=== PATIENT | female | born 1955 | race Caucasian/White ===

== ENCOUNTER → 2016-07-03 | Outpatient (CLI) | payer OTHER ==
[~2016-07-03] MED LIST: DICL50TA3 PO; LEVO125T72 PO; LISI5TAB3 PO
[2016-07-03 18:16] LABS: ALT/SGPT 45 U/L (12-78); AST/SGOT 25 U/L (15-37); BLOOD UREA NITROGEN 16 mg/dl (7-18); BUN/CREATININE RATIO 14.9 (10-20); CALCIUM 9.4 mg/dl (8.5-10.1); CARBON DIOXIDE 28 mmol/L (21-32); CHLORIDE 105 mmol/L (98-107); GLUCOSE 87 mg/dl (70-99); POTASSIUM 3.9 mmol/L (3.5-5.1); SODIUM 141 mmol/L (136-145)
[2016-07-03 18:27] LABS: ALB/GLOB RATIO 1.1 (0.9-2); ALKALINE PHOSPHATASE 74 U/L (45-117)
== END | disposition home or self-care (01) ==
LOC: C.LABBFT 15:31
PROVIDERS: ATTEND Internal Medicine
DX: I10 Essential (primary) hypertension (principal); E03.9 Hypothyroidism, unspecified

== ENCOUNTER → 2016-07-09 | Outpatient (CLI) | payer OTHER ==
--- NOTE | 2016-07-09 11:23 | DIAGNOSTIC IMAGING REPORT ---
MANDIBLE MIN 4 VIEWS ROUTINE CLINICAL HISTORY: R68.84 Jaw [id number] pain COMPARISON STUDY: None FINDINGS: Normal study. Cortical margins are intact. IMPRESSION: No acute process. Electronically signed by: Kevin Horton M.D. 07/09/2016 11:22 AM Dictated Date/Time: 07/09/2016 11:20 AM
== END | disposition home or self-care (01) ==
LOC: C.RAD1850 10:50
PROVIDERS: ATTEND Internal Medicine
DX: R68.84 Jaw pain (principal)

== ENCOUNTER → 2017-01-09 | Outpatient (CLI) | payer OTHER ==
[2017-01-09 12:25] LABS: HEMATOCRIT 41.6 % (37-47); MEAN CELL VOLUME 93.9 fL (80-100); MEAN CORPUSCULAR HEMOGLOBIN 31.8 pg (25-34); MEAN CORPUSCULAR HGB CONC 33.9 g/dl (32-36); MEAN PLATELET VOLUME 9.6 fL (7.4-10.4); PLATELET COUNT 193 K/uL (130-400); RED BLOOD COUNT 4.43 M/uL (4.2-5.4); WHITE BLOOD COUNT 7.63 K/uL (4.8-10.8)
[2017-01-09 12:44] LABS: ALT/SGPT 32 U/L (12-78); BLOOD UREA NITROGEN 16 mg/dl (7-18); BUN/CREATININE RATIO 15.7 (10-20); CALCIUM 9.6 mg/dl (8.5-10.1); CARBON DIOXIDE 25 mmol/L (21-32); CHLORIDE 106 mmol/L (98-107); CHOLESTEROL 200 mg/dl (0-200); GLUCOSE 93 mg/dl (70-99); POTASSIUM 4.1 mmol/L (3.5-5.1); SODIUM 140 mmol/L (136-145)
[2017-01-09 12:55] LABS: ALB/GLOB RATIO 0.9 (0.9-2); ALKALINE PHOSPHATASE 75 U/L (45-117); AST/SGOT 23 U/L (15-37); CHOLESTEROL/HDL RATIO 4.2; HDL CHOLESTEROL 48 mg/dl; LDL CHOLESTEROL CALCULATED 113 mg/dl; THYROID STIMULATING HORMONE 0.464 uIu/ml (0.300-4.500); TRIGLYCERIDES 197 mg/dl (0-150); VERY LOW DENSITY LIPOPROT CALC 39 mg/dl
== END | disposition home or self-care (01) ==
LOC: C.LABBFT 10:51
PROVIDERS: ATTEND Internal Medicine
DX: E03.9 Hypothyroidism, unspecified (principal); I10 Essential (primary) hypertension

== ENCOUNTER → 2017-07-16 | Outpatient (CLI) | payer OTHER ==
[2017-07-16 16:35] LABS: BASO % 0.5 %; BASO ABS # 0.04 K/uL (0-0.2); EOS ABS # 0.42 K/uL (0-0.5); HEMATOCRIT 41.9 % (37-47); HEMOGLOBIN 14.1 g/dL (12.0-16.0); IG# 0.02 K/uL (0.00-0.02); LYMPH % 24.7 %; LYMPH ABS # 2.09 K/uL (1.2-3.4); MEAN CELL VOLUME 93.5 fL (80-100); MEAN CORPUSCULAR HEMOGLOBIN 31.5 pg (25-34); MEAN CORPUSCULAR HGB CONC 33.7 g/dl (32-36); MEAN PLATELET VOLUME 9.9 fL (7.4-10.4); MONO % 8.8 %; MONO ABS # 0.74 K/uL (0.11-0.59); NEUT % 60.8 %; NEUT ABS # 5.14 K/uL (1.4-6.5); PLATELET COUNT 199 K/uL (130-400); RED CELL DISTRIBUTION WIDTH CV 13.5 % (11.5-14.5); RED CELL DISTRIBUTION WIDTH SD 46.2 fL (36.4-46.3); WHITE BLOOD COUNT 8.45 K/uL (4.8-10.8)
[2017-07-16 16:46] LABS: ALBUMIN 4.2 gm/dl (3.4-5.0); ALT/SGPT 25 U/L (12-78); BLOOD UREA NITROGEN 17 mg/dl (7-18); CALCIUM 9.4 mg/dl (8.5-10.1); CARBON DIOXIDE 27 mmol/L (21-32); CREATININE 0.91 mg/dl (0.60-1.20); GLUCOSE 85 mg/dl (70-99); POTASSIUM 3.7 mmol/L (3.5-5.1); SODIUM 138 mmol/L (136-145)
[2017-07-16 16:57] LABS: ALKALINE PHOSPHATASE 78 U/L (45-117); AST/SGOT 18 U/L (15-37); TOTAL PROTEIN 7.8 gm/dl (6.4-8.2)
== END | disposition home or self-care (01) ==
LOC: C.LABBFT 12:02
PROVIDERS: ATTEND Internal Medicine
DX: E03.9 Hypothyroidism, unspecified (principal); I10 Essential (primary) hypertension; D89.0 Polyclonal hypergammaglobulinemia

== ENCOUNTER → 2017-08-06 | Outpatient (CLI) | payer OTHER ==
--- NOTE | 2017-08-06 13:14 | DIAGNOSTIC IMAGING REPORT ---
HAND MIN 3 VIEWS ROUTINE CLINICAL HISTORY: M79.643 Pain of [id number] pain COMPARISON: None. DISCUSSION: Mild/moderate generalized degenerative change of the interphalangeal joints throughout. More significant degenerative change first carpometacarpal joint as well as second carpometacarpal joint. No evidence for fracture or dislocation. Mild dorsal soft tissue edema. IMPRESSION: Degenerative change considered most significant at the first and second carpometacarpal joints and to a moderate degree throughout the interphalangeal joints. Mild soft tissue edema. The above report was generated using voice recognition software. It may contain grammatical, syntax or spelling errors. Electronically signed by: Kevin Horton M.D. 08/06/2017 1:13 PM Dictated Date/Time: 08/06/2017 1:12 PM
== END | disposition home or self-care (01) ==
LOC: C.RAD1850 13:01
PROVIDERS: ATTEND Internal Medicine
DX: M79.641 Pain in right hand (principal)

== ENCOUNTER 2021-03-27 17:05 | Inpatient (IN) ==
[2021-03-27 18:08] LABS: Basophils # (auto) 0.02 K/uL (0-0.2); Basophils % (auto) 0.3 %; Eosinophils # (auto) 0.01 K/uL (0-0.5); Eosinophils % (auto) 0.2 %; Hematocrit (blood only) 41.6 % (37-47); Hemoglobin 13.7 g/dL (12.0-16.0); Immature Granulocytes # (auto) 0.01 K/uL (0.00-0.02); Immature Granulocytes % (auto) 0.2 %; Lymphocytes # (auto) 1.31 K/uL (1.2-3.4); Lymphocytes % (auto) 19.8 %; Mean Corpuscular Hemoglobin 31.9 pg (25-34); Mean Corpuscular Hgb Conc 32.9 g/dL (32-36); Mean Corpuscular Volume 96.7 fL (80-100); Mean Platelet Volume 10.2 fL (7.4-10.4); Monocytes # (auto) 0.81 K/uL (0.11-0.59); Monocytes % (auto) 12.2 %; Neutrophils # (auto) 4.47 K/uL (1.4-6.5); Neutrophils % (auto) 67.3 %; Platelet Count 133 K/uL (130-400); RDW Coefficient of Variation 13.7 % (11.5-14.5); RDW Standard Deviation 47.9 fL (36.4-46.3); White Blood Count 6.63 K/uL (4.8-10.8)
[2021-03-27 18:21] LABS: Partial Thromboplastin Time 27.2 Seconds (21.0-31.0); Prothrombin Time 10.3 Seconds (9.0-12.0)
[2021-03-27 19:03] LABS: Alanine Aminotransferase 64 (12-78); Albumin Globulin Ratio 0.8 (0.9-2); Albumin Level 3.6 gm/dl (3.4-5.0); Alkaline Phosphatase 55 U/L (45-117); Bilirubin,Total 0.7 mg/dl (0.2-1); Blood Urea Nitrogen 17 mg/dl (7-18); Calcium 8.7 mg/dl (8.5-10.1); Carbon Dioxide 24 mmol/L (21-32); Chloride 104 mmol/L (98-107); Est GFR (African American) 54.7 ml/min; Est GFR (Non-African American) 47.2 ml/min; Globulin 4.4 gm/dl (2.5-4.0); Glucose 104 mg/dl (70-99); Sodium 137 mmol/L (136-145); Thyroid Stimulating Hormone 0.459 uIu/ml (0.300-4.500); Troponin I < 0.015 ng/ml (0-0.045)
[2021-03-27 21:08] LABS: Potassium 3.4 mmol/L (3.5-5.1)
[2021-03-27 21:14] LABS: Magnesium 2.3 mg/dl (1.8-2.4)
[2021-03-27] MEDS ORDERED: ONDANSETRON INJ 2 MG/ML 2 ML VIAL IV STA (21:49)
--- NOTE | 2021-03-27 21:53 | Emergency Department Note ---
History of Present Illness General Chief complaint: Lethargic Stated complaint: LETHARGIC, CHILLS, CONFUSION--LYMES DISEASE Time Seen by Provider: 03/27/21 21:40 History of Present Illness This is a 65-year-old female that presents to the emergency department via private vehicle with complaints of "lethargic, chills, confusionLyme disease". The patient notes that about 10 to 12 weeks ago she had nausea, feeling queasy, difficulty eating, lightheadedness, "foggy" at times and dizziness. She notes that she was treated with doxycycline for Lyme disease and improved. She then notes that this past she felt like she was bit on her right ear but did not see any insect or bug. Thursday then she notes that she awoke and while walking to the chicken coop became dizzy and then fell. She notes return of symptoms that she had several weeks ago to include nauseated, queasiness, inability to eat secondary to nausea, lightheadedness, "foggy" at times and dizziness. She also notes intermittent cough. No chest pain. No shortness of breath. No fevers. She has been trying to stay hydrated. Patient denies any dizziness at this time. She denies any vision change. No speech trouble or weakness. Home Medications Medication Instructions Recorded Confirmed Type vitamin K2 40 mcg tablet 40 mcg PO QAM 10/15/18 03/27/21 History albuterol sulfate 90 mcg/actuation 2 puff INHALATION QID PRN #18 gm 01/18/20 03/27/21 Rx aerosol inhaler (Ventolin HFA) ibuprofen 600 mg tablet 600 mg PO Q6H PRN #90 tab 04/30/20 03/27/21 Rx acetaminophen 500 mg tablet 1,000 mg PO Q6 PRN 11/22/20 03/27/21 History (Tylenol Extra Strength) amlodipine 10 mg tablet 10 mg PO QAM #90 tab 01/23/21 03/27/21 Rx levothyroxine 150 mcg tablet 150 mcg PO QAM #90 tab 01/23/21 03/27/21 Rx nystatin-triamcinolone 100,000 1 applic TOP TID PRN #60 g 01/23/21 03/27/21 Rx unit/g-0.1 % topical cream ascorbic acid (vitamin C) 100 mg 0 mg PO DAILY 03/27/21 03/27/21 History tablet (Vitamin C) cholecalciferol (vitamin D3) 25 25 mcg PO DAILY 03/27/21 03/27/21 History mcg (1,000 unit) tablet (Vitamin D3) fluticasone 100 mcg-salmeterol 50 1 inh INH BID PRN 03/27/21 03/27/21 History mcg/dose blistr powdr for inhalation (Advair Diskus) magnesium 250 mg tablet 0 mg PO DAILY 03/27/21 03/27/21 History omega-3 fatty acids 0 mg PO DAILY 03/27/21 03/27/21 History potassium 99 mg tablet 0 mg PO DAILY 03/27/21 03/27/21 History vitamin E 400 unit tablet 0 mg PO DAILY 03/27/21 03/27/21 History Allergies Allergy/AdvReac Type Severity Reaction Status Date / Time amoxicillin Allergy Intermediate rash Verified 03/27/21 22:33 albuterol [From Combivent] AdvReac Intermediate Headache Verified 03/27/21 22:33 ipratropium [From Combivent] AdvReac Intermediate Headache Verified 03/27/21 22:33 hydrochlorothiazide AdvReac Mild SICK IN Verified 03/27/21 22:33 STOMACH Past Med/Surg History Medical History (Updated 03/28/21 @ 07:41 by Derek Kelly PA-C) Acute kidney injury (05/12/13) no problems currently. Asthma allergy induced--inhaler prn Cervical cancer 2005--sx Degenerative disc disease Diverticulosis Fatty liver pt unaware GERD (gastroesophageal reflux disease) no medications Hiatal hernia HTN (hypertension) Hyperlipidemia Hypothyroidism Leukemia 2011--bone marrow confirmation--just monitor for now Lupus Migraine Rheumatoid arthritis Urethral stricture due to and not concurrent with procedure Surgical History H/O tubal ligation History of breast biopsy x2--benign History of cataract surgery B/L History of colonoscopy History of dilatation and curettage History of tooth extraction all top teeth removed/most of bottom S/P laparoscopic hysterectomy Family History Mother Diabetes Breast cancer Bone cancer Uncle Colorectal cancer Diabetes Prostate cancer Sister Uterine cancer Father Myocardial infarction Prostate cancer Other Heart disease No family history of adverse response to anesthesia Denies family history of Ovarian cancer Social History Smoking Status: Never smoker Tobacco Type: Cigarettes Age Started Using Tobacco: 12; Age Quit Using Tobacco: 52; packs per day: 1; Second Hand Exposure: Yes (children smoke); Hx Alcohol Use: No Hx Substance Use: No Preferred Language: [place] Communication Ability: Effective Visual Impairment: No Limitations Hearing Ability: Normal 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 Beliefs That Will Affect Care: None marital status: Current Living Situation: Alone current occupational status: disabled Feels Safe at Home: Yes Childhood Exposure to Second-Hand Smoke: Yes caffeine: Yes during the past year weight has: remained stable Dental Care, Regularly: No Physical Activity Frequency: Does not Exercise Seatbelt Use: never Sunscreen Use: No Assistive Devices: Cane, Denture - Upper and Glasses Review of Systems A total of 10 systems reviewed and were otherwise negative Physical Exam Vital Signs Vital Signs - 24 hr 03/27/21 17:13 03/27/21 22:07 03/27/21 22:08 Temperature 36.8 C 37 C Temperature Source Temporal Artery Scan Oral Pulse Rate 99 H 86 Pulse Rate [Apical] Pulse Rate from SpO2 Sensor Pulse Rhythm Regular Pulse Strength Normal Respiratory Rate 20 18 Respiratory Effort / Characteristics Non-Labored Accessory Muscle Use Respiratory Depth Normal Respiratory Pattern Regular Blood Pressure 125/76 131/66 Blood Pressure [Right Arm] Blood Pressure Mean 92 87 Blood Pressure Mean [Right Arm] Blood Pressure Position Sitting Pulse Oximetry 94 93 Oxygen Delivery Method Room Air Room Air Oxygen Flow Rate Sepsis Recent Fever Within 48 Hours No Sepsis New/Unexplained Change in Mental Status No Sepsis Action Taken by Nursing No Action Required 03/28/21 00:30 03/28/21 01:20 03/28/21 01:21 Temperature 37.1 C Temperature Source Oral Pulse Rate 82 85 Pulse Rate [Apical] 82 Pulse Rate from SpO2 Sensor 82 85 Pulse Rhythm Pulse Strength Respiratory Rate 20 21 19 Respiratory Effort / Characteristics Non-Labored Spontaneous Respiratory Depth Normal Respiratory Pattern Regular Blood Pressure 135/83 Blood Pressure [Right Arm] 114/69 Blood Pressure Mean 100 Blood Pressure Mean [Right Arm] 84 Blood Pressure Position Pulse Oximetry 93 91 93 Oxygen Delivery Method Room Air Oxygen Flow Rate Sepsis Recent Fever Within 48 Hours Sepsis New/Unexplained Change in Mental Status Sepsis Action Taken by Nursing 03/28/21 01:30 03/28/21 01:43 03/28/21 02:00 Temperature Temperature Source Pulse Rate 83 86 Pulse Rate [Apical] 83 79 Pulse Rate from SpO2 Sensor 85 87 Pulse Rhythm Pulse Strength Respiratory Rate 20 23 19 Respiratory Effort / Characteristics Non-Labored Spontaneous Respiratory Depth Normal Respiratory Pattern Regular Blood Pressure 133/67 108/68 Blood Pressure [Right Arm] 133/67 126/69 Blood Pressure Mean 89 81 Blood Pressure Mean [Right Arm] 89 88 Blood Pressure Position Pulse Oximetry 93 96 92 Oxygen Delivery Method Room Air Room Air Oxygen Flow Rate Sepsis Recent Fever Within 48 Hours Sepsis New/Unexplained Change in Mental Status Sepsis Action Taken by Nursing 03/28/21 02:30 03/28/21 03:00 03/28/21 03:30 Temperature Temperature Source Pulse Rate 82 81 81 Pulse Rate [Apical] Pulse Rate from SpO2 Sensor 82 82 81 Pulse Rhythm Pulse Strength Respiratory Rate 20 18 33 H Respiratory Effort / Characteristics Respiratory Depth Respiratory Pattern Blood Pressure 104/71 Blood Pressure [Right Arm] Blood Pressure Mean 82 Blood Pressure Mean [Right Arm] Blood Pressure Position Pulse Oximetry 92 92 86 L Oxygen Delivery Method Room Air Oxygen Flow Rate Sepsis Recent Fever Within 48 Hours Sepsis New/Unexplained Change in Mental Status Sepsis Action Taken by Nursing 03/28/21 03:35 03/28/21 03:59 03/28/21 04:00 Temperature Temperature Source Pulse Rate 80 83 Pulse Rate [Apical] Pulse Rate from SpO2 Sensor 83 Pulse Rhythm Pulse Strength Respiratory Rate 20 20 29 H Respiratory Effort / Characteristics Respiratory Depth Respiratory Pattern Blood Pressure Blood Pressure [Right Arm] Blood Pressure Mean Blood Pressure Mean [Right Arm] Blood Pressure Position Pulse Oximetry 92 83 L 83 L Oxygen Delivery Method Room Air Room Air Nasal Cannula Oxygen Flow Rate 2 Sepsis Recent Fever Within 48 Hours Sepsis New/Unexplained Change in Mental Status Sepsis Action Taken by Nursing 03/28/21 04:01 03/28/21 04:30 03/28/21 05:00 Temperature Temperature Source Pulse Rate 86 86 77 Pulse Rate [Apical] Pulse Rate from SpO2 Sensor 84 78 Pulse Rhythm Pulse Strength Respiratory Rate 18 23 24 Respiratory Effort / Characteristics Respiratory Depth Respiratory Pattern Blood Pressure Blood Pressure [Right Arm] Blood Pressure Mean Blood Pressure Mean [Right Arm] Blood Pressure Position Pulse Oximetry 96 98 97 Oxygen Delivery Method Oxygen Flow Rate 2 Sepsis Recent Fever Within 48 Hours Sepsis New/Unexplained Change in Mental Status Sepsis Action Taken by Nursing VITAL SIGNS - Vital signs and nursing notes were reviewed. Stable and afebrile. GENERAL - 65-year-old female appearing her stated age who is in no acute distress. Communicates well with provider and answers questions appropriately. SKIN -the integument on the superior aspect of the right external ear does elici t a small scabbed area with a small amount of surrounding erythema. HEAD - NC/AT. EYES - PERRL with EOMI bilaterally. Sclera anicteric. EARS - No deformities of external structures noted on gross examination bilaterally. No pain elicited with palpation of the tragus bilaterally. External auditory canals without discharge or otorrhea. Tympanic membranes pearly tate without retraction or bulging. No fluid or purulent material visualized behind the TM. Handle of malleus, umbo, cone of light, pars tensa/flaccid all easily visualized. There is a small scab-like structure to the superior aspect of the right external ear with some small amount of surrounding erythema. NOSE - Midline and without cyanosis. No epistaxis or purulent drainage noted. Septum midline without deviation or septal hematoma noted. MOUTH/OROPHARYNX - Without perioral cyanosis. Buccal mucosa pink and moist and without leukoplakia. Tongue midline with equal elevation of palate bilaterally. No tonsillar hypertrophy, erythema, or exudates noted. Good dentition noted. NECK - Neck with FROM. Supple to palpation. Good lymphadenopathy noted. No nuchal rigidity. LUNGS - Chest wall symmetric without accessory muscle use, intercostals retractions, or central cyanosis. Normal vesicular breath sounds CTA B/L. No wheezes, rales, or rhonchi appreciated. CARDIAC - RRR with S1/S2. No murmur, rubs, or gallops appreciated. ABDOMEN - Abdominal contour normal without pulsations or visible masses. BS normoactive all four quadrants. No tenderness, palpable masses, hepatosplenomegaly, or ascites noted. EXTREMITIES - No clubbing or peripheral cyanosis. +5/5 strength noted in UE/LE bilaterally. NEUROLOGIC - Cranial nerves II through XII grossly intact. PSYCH - A&Ox3 and cooperates fully with examiner. Pt is very pleasant and in teracts well with examiner. Course Administered Medications Albuterol (Albut/Ipratrop 3mg/0.5mg Neb 3 Ml Vial) 3 ml NEB QIDR JAZMYNE Stop: 04/27/21 06:59 Last Admin: 03/28/21 07:07 Dose: 3 ml Documented by: [id number] Fish Oil ([place]-3 (Purified Fish Oil) 1 Gm Cap) 3 gm PO QAM PENDING SALE TO [facility] Stop: 04/27/21 08:59 Last Admin: 03/28/21 08:02 Dose: 3 gm Documented by: [id number] Guaifenesin (Guaifenesin 600 Mg Tabcr) 1,200 mg PO Q12 JAZMYNE Stop: 04/27/21 08:59 Last Admin: 03/28/21 08:00 Dose: 1,200 mg Documented by: [id number] Dexamethasone 6 mg/ Syringe 1.5 mls @ 1 mls/min IV DAILY PENDING SALE TO [facility] Stop: 04/27/21 08:59 Last Admin: 03/28/21 08:04 Dose: 1 mls/min Documented by: [id number] Doxycycline Hyclate 100 mg/ (Dextrose) 110 mls @ 50 mls/hr IV Q12 PENDING SALE TO [facility]; Protocol Stop: 04/07/21 07:59 Last Admin: 03/28/21 08:04 Dose: 50 mls/hr Documented by: [id number] Levothyroxine Sodium (Levothyroxine Sodium 150 Mcg Tablet) [facility] Stop: 04/27/21 07:29 Last Admin: 03/28/21 07:58 Dose: 150 mcg Documented by: [id number] Magnesium Oxide (Magnesium Oxide 400 Mg Tab) 400 mg PO DAILY PENDING SALE TO [facility] Stop: 04/27/21 08:59 Last Admin: 03/28/21 08:03 Dose: 400 mg Documented by: [id number] Vitamin D (Cholecalciferol 1,000 Units 25 Mcg Tab) 1,000 units PO QAM PENDING SALE TO [facility] Stop: 04/27/21 08:59 Last Admin: 03/28/21 08:03 Dose: 1,000 units Documented by: [id number] Zinc Sulfate (Zinc Sulfate 220 Mg Capsule) 220 mg PO QAM PENDING SALE TO [facility] Stop: 04/27/21 08:59 Last Admin: 03/28/21 08:22 Dose: Not Given Documented by: [id number] Discontinued Medications Casirivimab 1,200 mg/ Sodium (Chloride) 110 mls @ 310 mls/hr IV NOW ONE; Protocol Stop: 03/28/21 00:49 Last Infusion: 03/28/21 01:49 Dose: 0 mls/hr Documented by: [id number] Admin: 03/28/21 01:22 Dose: 310 mls/hr Documented by: [id number] Remdesivir 200 mg/ Sodium (Chloride) 250 mls @ 125 mls/hr IV ONE STA; Protocol Stop: 03/28/21 07:31 Last Admin: 03/28/21 06:27 Dose: 125 mls/hr Documented by: [id number] Ioversol (Optiray 320 125ml) 120 ml IV ONCE ONE Stop: 03/28/21 05:44 Last Admin: 03/28/21 05:43 Dose: 120 ml Documented by: [id number] Miscellaneous (Stat Iv) 1 ea N/A NOW STA Stop: 03/28/21 00:14 Last Admin: 03/28/21 01:23 Dose: 1 ea Documented by: [id number] Ondansetron HCl (Ondansetron Inj 2 Mg/Ml 2 Ml Vial) 4 mg IV NOW STA Stop: 03/27/21 21:50 Last Admin: 03/27/21 22:00 Dose: 4 mg Documented by: [id number] Potassium Chloride (Potassium Chloride Crtab 20 Meq Tabcr) 40 meq PO NOW STA Stop: 03/28/21 05:28 Last Admin: 03/28/21 05:56 Dose: 40 meq Documented by: [id number] Sodium Chloride (Sodium Chloride 0.9% 10ml Flush) 30 ml IV ONCE ONE Stop: 03/28/21 00:44 Last Admin: 03/28/21 01:43 Dose: 30 ml Documented by: [id number] Medical Decision Making Laboratory Data Result diagrams: 03/27/21 17:55 03/27/21 20:37 Lab Results 03/27/21 03/27/21 03/27/21 Range/Units 17:55 17:55 17:55 WBC 6.63 (4.8-10.8) K/uL RBC 4.30 (4.2-5.4) M/uL Hgb 13.7 (12.0-16.0) g/dL Hct 41.6 (37-47) % MCV 96.7 (80-100) fL MCH 31.9 (25-34) pg MCHC 32.9 (32-36) g/dL RDW Std Deviation 47.9 H (36.4-46.3) fL RDW Coeff of [place] 13.7 (11.5-14.5) % Plt Count 133 (130-400) K/uL MPV 10.2 (7.4-10.4) fL Immature Gran % (Auto) 0.2 % Neut % (Auto) 67.3 % Lymph % (Auto) 19.8 % [place] % (Auto) 12.2 % Eos % (Auto) 0.2 % Baso % (Auto) 0.3 % Neut # (Auto) 4.47 (1.4-6.5) K/uL Lymph # (Auto) 1.31 (1.2-3.4) K/uL [place] # (Auto) 0.81 H (0.11-0.59) K/uL Eos # (Auto) 0.01 (0-0.5) K/uL Baso # (Auto) 0.02 (0-0.2) K/uL Immature Gran # (Auto) 0.01 (0.00-0.02) K/uL PT 10.3 (9.0-12.0) Seconds INR 1.0 (0.9-1.1) APTT 27.2 (21.0-31.0) Seconds PTT Ratio 1.0 Sodium 137 (136-145) mmol/L Potassium (3.5-5.1) mmol/L Chloride 104 (98-107) mmol/L Carbon Dioxide 24 (21-32) mmol/L Anion Gap 9.0 (3-11) BUN 17 (7-18) mg/dl Creatinine 1.19 (0.6-1.2) mg/dl Est Cr Clr Drug Dosing Not Reportable Est GFR ( Amer) 54.7 ml/min Est GFR (Non-Af Amer) 47.2 ml/min BUN/Creatinine Ratio 14.0 (10-20) Glucose 104 H (70-99) mg/dl Calcium 8.7 (8.5-10.1) mg/dl Magnesium (1.8-2.4) mg/dl Total Bilirubin 0.7 (0.2-1) mg/dl AST (15-37) U/L ALT 64 (12-78) Alkaline Phosphatase 55 (45-117) U/L Troponin I < 0.015 (0-0.045) ng/ml Total Protein 8.0 (6.4-8.2) gm/dl Albumin 3.6 (3.4-5.0) gm/dl Globulin 4.4 H (2.5-4.0) gm/dl Albumin/Globulin Ratio 0.8 L (0.9-2) TSH 0.459 (0.300-4.500) uIu/ml Urine Color Urine Appearance (Clear) Urine pH (4.5-7.5) Ur Specific [place] (1.000-1.030) Urine Protein (Negative) Urine Glucose (UA) (Negative) Urine Ketones (Negative) Urine Blood (Negative) Urine Nitrite (Negative) Urine Bilirubin (Negative) Urine Urobilinogen (Negative) Ur Leukocyte Esterase (Negative) Urine RBC (0-4) /hpf Urine WBC (0-5) /hpf Ur Epithelial Cells (0-5) /lpf Triple Phos Crystals (None Prsent) Urine Bacteria (Negative) Hyaline Casts (0-5) /lpf Urine Mucus (None Prsent) Lyme Disease IgG Ab (Negative) Lyme Disease IgM Ab (Negative) SARS-CoV-2 (PCR) (Negative) Influenza Type A (PCR) (Neg) Influenza Type B (PCR) (Neg) RSV (RT-PCR) (Neg) 03/27/21 03/27/21 03/27/21 Range/Units 20:37 22:13 23:00 WBC (4.8-10.8) K/uL RBC (4.2-5.4) M/uL Hgb (12.0-16.0) g/dL Hct (37-47) % MCV (80-100) fL MCH (25-34) pg MCHC (32-36) g/dL RDW Std Deviation (36.4-46.3) fL RDW Coeff of [place]ilo (11.5-14.5) % Plt Count (130-400) K/uL MPV (7.4-10.4) fL Immature Gran % (Auto) % Neut % (Auto) % Lymph % (Auto) % [place] % (Auto) % Eos % (Auto) % Baso % (Auto) % Neut # (Auto) (1.4-6.5) K/uL Lymph # (Auto) (1.2-3.4) K/uL [place] # (Auto) (0.11-0.59) K/uL Eos # (Auto) (0-0.5) K/uL Baso # (Auto) (0-0.2) K/uL Immature Gran # (Auto) (0.00-0.02) K/uL PT (9.0-12.0) Seconds INR (0.9-1.1) APTT (21.0-31.0) Seconds PTT Ratio Sodium (136-145) mmol/L Potassium 3.4 L (3.5-5.1) mmol/L Chloride (98-107) mmol/L Carbon Dioxide (21-32) mmol/L Anion Gap (3-11) BUN (7-18) mg/dl Creatinine (0.6-1.2) mg/dl Est Cr Clr Drug Dosing Est GFR ( Amer) ml/min Est GFR (Non-Af Amer) ml/min BUN/Creatinine Ratio (10-20) Glucose (70-99) mg/dl Calcium (8.5-10.1) mg/dl Magnesium 2.3 (1.8-2.4) mg/dl Total Bilirubin (0.2-1) mg/dl AST 55 H (15-37) U/L ALT (12-78) Alkaline Phosphatase (45-117) U/L Troponin I (0-0.045) ng/ml Total Protein (6.4-8.2) gm/dl Albumin (3.4-5.0) gm/dl Globulin (2.5-4.0) gm/dl Albumin/Globulin Ratio (0.9-2) TSH (0.300-4.500) uIu/ml Urine Color Dark Yellow Urine Appearance Clear (Clear) Urine pH 5.5 (4.5-7.5) Ur Specific [place] >= 1.030 (1.000-1.030) Urine Protein 2+ H (Negative) Urine Glucose (UA) Negative (Negative) Urine Ketones 1+ H (Negative) Urine Blood Negative (Negative) Urine Nitrite Negative (Negative) Urine Bilirubin 2+ H (Negative) Urine Urobilinogen Negative (Negative) Ur Leukocyte Esterase Negative (Negative) Urine RBC 0-4 (0-4) /hpf Urine WBC 0-5 (0-5) /hpf Ur Epithelial Cells 5-10 H (0-5) /lpf Triple Phos Crystals Present A (None Prsent) Urine Bacteria Negative (Negative) Hyaline Casts 0-5 (0-5) /lpf Urine Mucus Present A (None Prsent) Lyme Disease IgG Ab (Negative) Lyme Disease IgM Ab (Negative) SARS-CoV-2 (PCR) POSITIVE A* (Negative) Influenza Type A (PCR) Negative (Neg) Influenza Type B (PCR) Negative (Neg) RSV (RT-PCR) Negative (Neg) 03/27/21 Range/Units 23:13 WBC (4.8-10.8) K/uL RBC (4.2-5.4) M/uL Hgb (12.0-16.0) g/dL Hct (37-47) % MCV (80-100) fL MCH (25-34) pg MCHC (32-36) g/dL RDW Std Deviation (36.4-46.3) fL RDW Coeff of [place] (11.5-14.5) % Plt Count (130-400) K/uL MPV (7.4-10.4) fL Immature Gran % (Auto) % Neut % (Auto) % Lymph % (Auto) % [place] % (Auto) % Eos % (Auto) % Baso % (Auto) % Neut # (Auto) (1.4-6.5) K/uL Lymph # (Auto) (1.2-3.4) K/uL [place] # (Auto) (0.11-0.59) K/uL Eos # (Auto) (0-0.5) K/uL Baso # (Auto) (0-0.2) K/uL Immature Gran # (Auto) (0.00-0.02) K/uL PT (9.0-12.0) Seconds INR (0.9-1.1) APTT (21.0-31.0) Seconds PTT Ratio Sodium (136-145) mmol/L Potassium (3.5-5.1) mmol/L Chloride (98-107) mmol/L Carbon Dioxide (21-32) mmol/L Anion Gap (3-11) BUN (7-18) mg/dl Creatinine (0.6-1.2) mg/dl Est Cr Clr Drug Dosing Est GFR ( Amer) ml/min Est GFR (Non-Af Amer) ml/min BUN/Creatinine Ratio (10-20) Glucose (70-99) mg/dl Calcium (8.5-10.1) mg/dl Magnesium (1.8-2.4) mg/dl Total Bilirubin (0.2-1) mg/dl AST (15-37) U/L ALT (12-78) Alkaline Phosphatase (45-117) U/L Troponin I (0-0.045) ng/ml Total Protein (6.4-8.2) gm/dl Albumin (3.4-5.0) gm/dl Globulin (2.5-4.0) gm/dl Albumin/Globulin Ratio (0.9-2) TSH (0.300-4.500) uIu/ml Urine Color Urine Appearance (Clear) Urine pH (4.5-7.5) Ur Specific [place] (1.000-1.030) Urine Protein (Negative) Urine Glucose (UA) (Negative) Urine Ketones (Negative) Urine Blood (Negative) Urine Nitrite (Negative) Urine Bilirubin (Negative) Urine Urobilinogen (Negative) Ur Leukocyte Esterase (Negative) Urine RBC (0-4) /hpf Urine WBC (0-5) /hpf Ur Epithelial Cells (0-5) /lpf Triple Phos Crystals (None Prsent) Urine Bacteria (Negative) Hyaline Casts (0-5) /lpf Urine Mucus (None Prsent) Lyme Disease IgG Ab Positive A (Negative) Lyme Disease IgM Ab Positive A (Negative) SARS-CoV-2 (PCR) (Negative) Influenza Type A (PCR) (Neg) Influenza Type B (PCR) (Neg) RSV (RT-PCR) (Neg) Imaging Data My Impression: Chest x-ray reveals bilateral mild infiltrates consistent with acute viral pneumonia. Radiologist's Impression: Head CT 03/27/21 21:[address] DOSE: 614.27 mGy.cm HISTORY: dizziness TECHNIQUE: Multiaxial CT images of the head were performed without the use of intravenous contrast. Automated exposure control was utilized for this study. A dose lowering technique was utilized adhering to the principles of ALARA. Comparison: Head CT 07/27/2018. Findings: The paranasal sinuses and mastoid air cells are clear. The calvarium and skull base are intact. The ventricles and sulci are within normal limits. There is no mass, hematoma, midline shift, or acute infarct. Impression: No acute intracranial abnormality. ACT 112: Negative or not required by law. Electronically signed by: Warren Thacker M.D. 03/28/2021 7:23 AM MDM Narrative Patient was seen and evaluated as above in room A02. Review was performed of nursing notes and vital signs. I did review pertinent previous visits and patient history. After obtaining a thorough history and physical examination the above work up was performed. Patient presents to us today with several days of nausea, feeling queasy, difficulty eating because of her nausea, intermittent lightheadedness, feeling foggy at times and dizziness. She is nontoxic on examination. Vital signs stable. No focal neurologic deficit. No speech trouble or weakness. No chest pain or shortness of breath. Patient was seen during a period of high volume and acuity during the COVID-19 pandemic. Protocols were already performed and labs were already drawn prior to me evaluating the patient. No leukocytosis or concerning anemia. No emergent metabolic disturbance. Troponin negative. TSH normal. Urinalysis does not reveal infection. Lyme IgG and IgM were positive however she was recently on a course of 21 days of doxycycline a few months ago. Covid testing here is positive. Chest x-ray per my interpretation reveals what appears to be a mild multifocal pneumonia likely viral in origin from COVID-19. CT scan of the head was obtained noting her dizziness and was negative for acute process. EKG here reveals normal sinus rhythm at a rate of 97 bpm. QTc 419. QRS 76. The patient is able to tolerate p.o. We discussed options of care. The patient at this time appears stable to be discharged to follow-up in the outpatient setting. No hypoxia. Benefit versus risk of Covid monoclonal antibodies discussed noting that she meets criteria and at this time appears stable for discharge. No episodes of hypoxia thus far. She was provided the appropriate patient fact sheet. She was able to review this in its entirety. She would like to proceed with the monoclonal antibody. This was ordered. Patient was doing quite well. Patient then did desire to wait a few hours after the infusion to ensure there was no reaction. I did find this to be reasonable. I was then notified by the nurse that the patient's oxygen had dropped into the 80s with good waveform. This then happened again. Oxygen was started. Although the plan was for discharge home after the monoclonal antibodies, at this time with the patient having 2 episodes of hypoxia in the setting of COVID-19 it is felt that further evaluation and management in the inpatient setting is warranted. Case discussed with the hospitalist. Patient amenable to plan of care. Please refer to further documentation regarding her stay. GCS: 15 In the evaluation and treatment of this patient the following differential diagnoses were entertained: Acute intracranial abnormality, SD, PE, pericarditis, costochondritis, CVA, TIA, among others. Impression & Plan Pneumonia due to COVID-19 virus, Hypoxia, Lyme disease Discharge Plan Visit Data Chief Complaint: Lethargic Stated Complaint: LETHARGIC, CHILLS, CONFUSION--LYMES DISEASE ED Provider: Andrea Moore ED Midlevel Provider: Derek Kelly Discharge Problem: Pneumonia due to COVID-19 virus, Hypoxia, Lyme disease Patient Disposition: Admitted As Inpatient Condition: Good Discharge Instructions Interventions: ED Discharge Assessment Last Done: 03/28/21 06:43 Monoclonal Antibody Treatment Medical Decision Making Does the patient weigh at least 40kg?: Yes Is the patient within 10 days of symptom onset?: Yes The patient has the following criteria for treatment: Age >= 65, BMI > 25 and Chronic lung disease List of possible exclusion criteria: A. Being hospitalized for COVID B. Requiring Oxygen Therapy due to COVID C. Requiring an increase in baseline Oxygen flow rate due to COVID-19 in those on chronic oxygen therapy due to underlying non-COVID related comorbidity D. Known to have a hypersensitivity to any ingredient of Bamlanivimab or Casirivimab/imdevimab EUA: The patient meets EUA criteria for use. I have explained the EUA, risks and benefits of the infusion, and reviewed the information on the Fact Sheet for Patients, Parents and Caregivers with the patient. The patient was given a copy of the Fact Sheet for patients, Parents and Caregivers and education packet. They were informed that Bamlanivimab or Casirivimab/imdevimab is an unapproved drug that it is authorized for use under an Emergency Use Authorization. They were informed of alternative treatments. The patient reviewed the information and freely consented to the infusion.
[2021-03-27 22:59] LABS: Influenza A virus by PCR Negative (Neg); Influenza B virus by PCR Negative (Neg); RSV by PCR Negative (Neg)
[2021-03-27 23:02] LABS: SARS CoV2 RNA(COVID-19) InHosp POSITIVE (Negative)
[2021-03-27 23:06] LABS: Appearance Urine Clear (Clear); Bilirubin Urine 2+ (Negative); Blood Urine Negative (Negative); Glucose Urine UA Negative (Negative); Ketones Urine 1+ (Negative); Leukocyte Esterase Urine Negative (Negative); Nitrite Urine Negative (Negative); Protein Urine 2+ (Negative); Specific Gravity Urine >= 1.030 (1.000-1.030); Urobilinogen Urine Negative (Negative); pH Urine 5.5 (4.5-7.5)
[2021-03-27 23:09] LABS: Color Urine Dark Yellow
[2021-03-27 23:14] LABS: RBC Urine 0-4 /hpf (0-4)
[2021-03-27 23:15] LABS: Bacteria Urine Negative (Negative); Hyaline Casts Urine 0-5 /lpf (0-5); Mucus Urine Present (None Prsent); Triple Phosphate Crystal Urine Present (None Prsent); WBC Urine 0-5 /hpf (0-5)
[2021-03-28] MEDS ORDERED: methylPREDNISolone 125 MG/2 ML VIAL IV PRN (00:13)
[2021-03-28] MEDS ORDERED: EPINEPHrine INJ 1 MG/ML AMP IM PRN (00:13)
[2021-03-28] MEDS ORDERED: ONDANSETRON INJ 2 MG/ML 2 ML VIAL IV PRN ×2 (00:13→06:44)
[2021-03-28] MEDS ORDERED: STAT IV STA (00:13)
[2021-03-28] MEDS ORDERED: ACETAMINOPHEN 325 MG TAB PO PRN (00:13)
[2021-03-28] MEDS ORDERED: diphenhydrAMINE 50 MG/ML VIAL IV PRN (00:13)
[2021-03-28] MEDS ORDERED: CASIRIVIMAB/IMDEVIMAB 1,200 MG in 0.9 % SODIUM CHLORIDE 100 ML IV ONE (00:28)
[2021-03-28] MEDS ORDERED: SODIUM CHLORIDE 0.9% 10ML FLUSH IV ONE (00:43)
[2021-03-28] MEDS ORDERED: 0.2 MICRON FILTER SET 1 EA IV ONE (00:43)
[2021-03-28 00:54] LABS: Lyme Ab IgG w/WB Rflx Positive (Negative); Lyme Ab IgM w/WB Rflx Positive (Negative)
--- NOTE | 2021-03-28 01:28 | Emergency Department Note ---
ED Visit Note Patient was seen and evaluated at the bedside w/ Derek Kelly PA-C. Please see their note for history, physical, details, and disposition. Patient did present with weakness and fatigue and recent Lyme's illness. Diagnosed with Covid today. Received monoclonal antibodies. .
[2021-03-28] MEDS ORDERED: POTASSIUM CHLORIDE CRTAB 20 MEQ TABCR PO STA (05:27)
[2021-03-28] MEDS ORDERED: REMDESIVIR 200 MG in SODIUM CHLORIDE 0.9% 210 ML IV STA (05:32)
--- NOTE | 2021-03-28 05:32 | History & Physical Report ---
Date of Service March 28, 2021 Assessment & Plan (1) Pneumonia due to COVID-19 virus: Plan: Pneumonia due to COVID-19 virus/COPD exacerbation with hypoxia- Pulse ox decreased to 83% on room air CT angiography PE protocol ordered and pending Dexamethasone 6 mg IV every morning Remdesivir IV per protocol Duonebs every 4 hours while awake and every 2 hours when necessary. Azithromycin 500 mg IV daily Guaifenesin extended release 12 mg p.o. twice daily Vitamin D 1000 international units p.o. daily Zinc sulfate 220 mg p.o. daily Nasal cannula oxygen, titrate to keep pulse ox 94 to 95% Will place on Lovenox, if CT angiography is positive for PE will be on therapeu tic dosing, otherwise will be on Covid prophylaxis dosing (2) Hypoxia: Plan: See above (3) Lyme disease: Plan: Had an episode about 12 weeks ago, that appeared to respond to 21 days of doxycycline, with resolution of those symptoms. Patient tested positive for IgM and IgG antibodies with PCR testing. She does remember having a dark spot on her ear within the past few weeks (4) Hypokalemia: Plan: Potassium 3.4 upon edition. We will give Klor-Con 40 mEq p.o. x1 then recheck (5) Lupus: Plan: Noted on problems, however, no long-term therapy (6) HTN (hypertension): Plan: Hold amlodipine due to low normal blood pressure (7) Hypothyroidism: Plan: Continue levothyroxine 50 mcg daily (8) COPD (chronic obstructive pulmonary disease): Plan: See above History of Present Illness Chief Complaint: The patient presents to the emergency department with complaint of fatigue, chills, confusion, decreased appetite, lightheadedness about 12 weeks ago that was relieved by a 21-day course of doxycycline for Lyme disease. She noticed 1 week ago an episode of dizziness causing her to fall, and then had a return of some of the previous symptoms, but also became short of breath and had dyspnea on exertion. Primary Care Provider: NO PCP Allergies Allergy/AdvReac Type Severity Reaction Status Date / Time amoxicillin Allergy Intermediate rash Verified 03/27/21 22:33 albuterol [From Combivent] AdvReac Intermediate Headache Verified 03/27/21 22:33 ipratropium [From Combivent] AdvReac Intermediate Headache Verified 03/27/21 22:33 hydrochlorothiazide AdvReac Mild SICK IN Verified 03/27/21 22:33 STOMACH Home Medications Medication Instructions Recorded Confirmed Type vitamin K2 40 mcg tablet 40 mcg PO QAM 10/15/18 03/27/21 History albuterol sulfate 90 mcg/actuation 2 puff INHALATION QID PRN #18 gm 01/18/20 03/27/21 Rx aerosol inhaler (Ventolin HFA) ibuprofen 600 mg tablet 600 mg PO Q6H PRN #90 tab 04/30/20 03/27/21 Rx acetaminophen 500 mg tablet 1,000 mg PO Q6 PRN 11/22/20 03/27/21 History (Tylenol Extra Strength) amlodipine 10 mg tablet 10 mg PO QAM #90 tab 01/23/21 03/27/21 Rx levothyroxine 150 mcg tablet 150 mcg PO QAM #90 tab 01/23/21 03/27/21 Rx nystatin-triamcinolone 100,000 1 applic TOP TID PRN #60 g 01/23/21 03/27/21 Rx unit/g-0.1 % topical cream ascorbic acid (vitamin C) 100 mg 0 mg PO DAILY 03/27/21 03/27/21 History tablet (Vitamin C) cholecalciferol (vitamin D3) 25 25 mcg PO DAILY 03/27/21 03/27/21 History mcg (1,000 unit) tablet (Vitamin D3) fluticasone 100 mcg-salmeterol 50 1 inh INH BID PRN 03/27/21 03/27/21 History mcg/dose blistr powdr for inhalation (Advair Diskus) magnesium 250 mg tablet 0 mg PO DAILY 03/27/21 03/27/21 History omega-3 fatty acids 0 mg PO DAILY 03/27/21 03/27/21 History potassium 99 mg tablet 0 mg PO DAILY 03/27/21 03/27/21 History vitamin E 400 unit tablet 0 mg PO DAILY 03/27/21 03/27/21 History Past Med/Surg History Medical History (Updated 03/28/21 @ 05:51 by Olivier Pierce MD) Acute kidney injury (05/12/13) no problems currently. Asthma allergy induced--inhaler prn Cervical cancer 2005--sx Degenerative disc disease Diverticulosis Fatty liver pt unaware GERD (gastroesophageal reflux disease) no medications Hiatal hernia HTN (hypertension) Hyperlipidemia Hypothyroidism Leukemia 2011--bone marrow confirmation--just monitor for now Lupus Migraine Rheumatoid arthritis Urethral stricture due to and not concurrent with procedure Surgical History H/O tubal ligation History of breast biopsy x2--benign History of cataract surgery B/L History of colonoscopy History of dilatation and curettage History of tooth extraction all top teeth removed/most of bottom S/P laparoscopic hysterectomy Family History Mother Diabetes Breast cancer Bone cancer Uncle Colorectal cancer Diabetes Prostate cancer Sister Uterine cancer Father Myocardial infarction Prostate cancer Other Heart disease No family history of adverse response to anesthesia Denies family history of Ovarian cancer Social History Smoking Status: Never smoker Tobacco Type: Cigarettes Age Started Using Tobacco: 12; Age Quit Using Tobacco: 52; packs per day: 1; Second Hand Exposure: Yes (children smoke); Hx Alcohol Use: No Hx Substance Use: No Preferred Language: Sinhala Communication Ability: Effective Visual Impairment: No Limitations Hearing Ability: Normal Due Diligence Coordinator Required: No Beliefs That Will Affect Care: None marital status: Current Living Situation: Alone current occupational status: disabled Feels Safe at Home: Yes Childhood Exposure to Second-Hand Smoke: Yes caffeine: Yes during the past year weight has: remained stable Dental Care, Regularly: No Physical Activity Frequency: Does not Exercise Seatbelt Use: never Sunscreen Use: No Assistive Devices: Cane, Denture - Upper and Glasses Review of Systems Review of Systems: The patient denies chest pain, palpitations, lower extremity swelling, sore throat, diarrhea , constipation, abdominal pain, pelvic pain, blood in urine or stool, dysuria, urinary frequency or urgency, memory loss, loss of consciousness, rash, abnormal bruising or bleeding, focal weakness, numbness or tingling in arms or legs, generalized arthralgias or myalgias, back or neck pain, or night sweats. The review of systems is otherwise negative other than for that already noted above, and at least 10 systems have been reviewed. Physical Exam Physical Exam: The patient is awake, alert and oriented 3, well developed and well nourished, normocephalic and atraumatic, lying in bed and in no acute distress. HEENT--PERRL, EOMI, mucous membranes and oropharynx normal. Neck--supple. No JVD. No bruits. Thyroid normal, trachea midline, no adenopathy. Heart--normal S1 and S2. No murmurs, rubs or gallops. Lungs--coarse breath sounds bilaterally. No respiratory distress, no accessory muscle use. Abdomen--normal bowel sounds and soft. Nontender. Nondistended. Extremities--no cyanosis or clubbing. No edema. Dermatologic--normal skin turgor, normal color, no abnormal lymph nodes, no rash. Neurologic--cranial nerves II through XII grossly intact. Rheumatologic--normal range of motion. Psychiatric--normal affect. Results & Data Results & Data ([facility]) Vital Signs (Past 12 Hours) Vital Signs Temp Pulse Pulse Resp BP BP Pulse Ox 03/28/21 04:01 86 18 96 03/28/21 04:00 86 18 92 03/28/21 03:59 20 83 L 03/28/21 03:35 80 20 92 03/28/21 03:30 81 33 H 86 L 03/28/21 03:00 81 18 104/71 92 03/28/21 02:30 82 20 92 03/28/21 02:00 86 19 108/68 92 03/28/21 01:43 79 23 126/69 96 03/28/21 01:30 83 83 20 133/67 133/67 93 03/28/21 01:21 37.1 C 82 19 114/69 93 03/28/21 01:20 85 21 91 03/28/21 00:30 82 20 135/83 93 03/27/21 22:08 37 C 03/27/21 22:07 86 18 131/66 93 Laboratory Results Laboratory Results WBC 6.63 K/uL (4.8-10.8) 03/27/21 17:55 RBC 4.30 M/uL (4.2-5.4) 03/27/21 17:55 Hgb 13.7 g/dL (12.0-16.0) 03/27/21 17:55 Hct 41.6 % (37-47) 03/27/21 17:55 MCV 96.7 fL (80-100) 03/27/21 17:55 MCH 31.9 pg (25-34) 03/27/21 17:55 MCHC 32.9 g/dL (32-36) 03/27/21 17:55 RDW Std Deviation 47.9 fL (36.4-46.3) H 03/27/21 17:55 RDW Coeff of Nilo 13.7 % (11.5-14.5) 03/27/21 17:55 Plt Count 133 K/uL (130-400) 03/27/21 17:55 MPV 10.2 fL (7.4-10.4) 03/27/21 17:55 Immature Gran % (Auto) 0.2 % 03/27/21 17:55 Neut % (Auto) 67.3 % 03/27/21 17:55 Lymph % (Auto) 19.8 % 03/27/21 17:55 [place] % (Auto) 12.2 % 03/27/21 17:55 Eos % (Auto) 0.2 % 03/27/21 17:55 Baso % (Auto) 0.3 % 03/27/21 17:55 Neut # (Auto) 4.47 K/uL (1.4-6.5) 03/27/21 17:55 Lymph # (Auto) 1.31 K/uL (1.2-3.4) 03/27/21 17:55 [place] # (Auto) 0.81 K/uL (0.11-0.59) H 03/27/21 17:55 Eos # (Auto) 0.01 K/uL (0-0.5) 03/27/21 17:55 Baso # (Auto) 0.02 K/uL (0-0.2) 03/27/21 17:55 Immature Gran # (Auto) 0.01 K/uL (0.00-0.02) 03/27/21 17:55 PT 10.3 Seconds (9.0-12.0) 03/27/21 17:55 INR 1.0 (0.9-1.1) 03/27/21 17:55 APTT 27.2 Seconds (21.0-31.0) 03/27/21 17:55 PTT Ratio 1.0 03/27/21 17:55 Sodium 137 mmol/L (136-145) 12/08/21 17:55 Potassium 3.4 mmol/L (3.5-5.1) L 03/27/21 20:37 Chloride 104 mmol/L (98-107) 03/27/21 17:55 Carbon Dioxide 24 mmol/L (21-32) 03/27/21 17:55 Anion Gap 9.0 (3-11) 03/27/21 17:55 BUN 17 mg/dl (7-18) 03/27/21 17:55 Creatinine 1.19 mg/dl (0.6-1.2) 03/27/21 17:55 Est Cr Clr Drug Dosing Not Reportable 03/27/21 17:55 Est GFR ( Amer) 54.7 ml/min 03/27/21 17:55 Est GFR (Non-Af Amer) 47.2 ml/min 03/27/21 17:55 BUN/Creatinine Ratio 14.0 (10-20) 03/27/21 17:55 Glucose 104 mg/dl (70-99) H 03/27/21 17:55 Calcium 8.7 mg/dl (8.5-10.1) 03/27/21 17:55 Magnesium 2.3 mg/dl (1.8-2.4) 03/27/21 20:37 Total Bilirubin 0.7 mg/dl (0.2-1) 03/27/21 17:55 AST 55 U/L (15-37) H 03/27/21 20:37 ALT 64 (12-78) 03/27/21 17:55 Alkaline Phosphatase 55 U/L (45-117) 03/27/21 17:55 Troponin I < 0.015 ng/ml (0-0.045) 03/27/21 17:55 Total Protein 8.0 gm/dl (6.4-8.2) 03/27/21 17:55 Albumin 3.6 gm/dl (3.4-5.0) 03/27/21 17:55 Globulin 4.4 gm/dl (2.5-4.0) H 03/27/21 17:55 Albumin/Globulin Ratio 0.8 (0.9-2) L 03/27/21 17:55 TSH 0.459 uIu/ml (0.300-4.500) 03/27/21 17:55 Urine Color Dark Yellow 03/27/21 23:00 Urine Appearance Clear (Clear) 03/27/21 23:00 Urine pH 5.5 (4.5-7.5) 03/27/21 23:00 Ur Specific [place] >= 1.030 (1.000-1.030) 03/27/21 23:00 Urine Protein 2+ (Negative) H 03/27/21 23:00 Urine Glucose (UA) Negative (Negative) 03/27/21 23:00 Urine Ketones 1+ (Negative) H 03/27/21 23:00 Urine Blood Negative (Negative) 03/27/21 23:00 Urine Nitrite Negative (Negative) 03/27/21 23:00 Urine Bilirubin 2+ (Negative) H 03/27/21 23:00 Urine Urobilinogen Negative (Negative) 03/27/21 23:00 Ur Leukocyte Esterase Negative (Negative) 03/27/21 23:00 Urine RBC 0-4 /hpf (0-4) 03/27/21 23:00 Urine WBC 0-5 /hpf (0-5) 03/27/21 23:00 Ur Epithelial Cells 5-10 /lpf (0-5) H 03/27/21 23:00 Triple Phos Crystals Present (None Prsent) A 03/27/21 23:00 Urine Bacteria Negative (Negative) 03/27/21 23:00 Hyaline Casts 0-5 /lpf (0-5) 03/27/21 23:00 Urine Mucus Present (None Prsent) A 03/27/21 23:00 Lyme Disease IgG Ab Positive (Negative) A 03/27/21 23:13 Lyme Disease IgM Ab Positive (Negative) A 03/27/21 23:13 SARS-CoV-2 (PCR) POSITIVE (Negative) A* 03/27/21 22:13 Influenza Type A (PCR) Negative (Neg) 03/27/21 22:13 Influenza Type B (PCR) Negative (Neg) 03/27/21 22:13 RSV (RT-PCR) Negative (Neg) 03/27/21 22:13 Code Status & VTE Plan Code Status Full code VTE Prophylaxis Plan VTE Prophylaxis will be ordered: Yes PG Care Time/CCT Total # of Minutes Spent Total Time Spent with Patient: Total time spent is greater than 50% in coordination of care (as documented) at patient's floor/unit and/or counseling patient: Coding Level of Care Code 68725 Initial Inpt Care Lvl 3 Diagnoses Pneumonia due to COVID-19 virus U07.1; J12.82 Hypoxia R09.02 Hypokalemia E87.6 Lupus L93.0 HTN (hypertension) I10 Hypothyroidism E03.9 COPD (chronic obstructive pulmonary disease) J44.9 Lyme disease A69.20
[2021-03-28] MEDS ORDERED: OPTIRAY 320 125ml IV ONE (05:43)
[2021-03-28] MEDS ORDERED: SODIUM CHLORIDE 0.9% 10ML FLUSH IV SCH ×2 (06:44→07:00)
[2021-03-28] MEDS: ALBUT/IPRATROP 3MG/0.5MG NEB 3 ML VIAL NEB SCH ×4 (07:07→20:22)
--- NOTE | 2021-03-28 07:25 | CT Scan Report ---
HEAD CT NONCONTRAST CT DOSE: 614.27 mGy.cm HISTORY: dizziness TECHNIQUE: Multiaxial CT images of the head were performed without the use of intravenous contrast. A utomated exposure control was utilized for this study. A dose lowering technique was utilized adheri ng to the principles of ALARA. Comparison: Head CT 07/27/2018. Findings: The paranasal sinuses and mastoid air cells are clear. The calvarium and skull base are int act. The ventricles and sulci are within normal limits. There is no mass, hematoma, midline shift, or acute infarct. Impression: No acute intracranial abnormality. ACT 112: Negative or not required by law. Electronically signed by: Warren Thacker M.D. 03/28/2021 7:23 AM
[2021-03-28] MEDS ORDERED: DOXYCYCLINE HYCLATE 100 MG in DEXTROSE 5% 100 ML IV SCH ×2 (07:30→08:00)
[2021-03-28] MEDS: LEVOTHYROXINE SODIUM 150 MCG TABLET PO SCH (07:58)
[2021-03-28] MEDS: guaiFENesin 600 MG TABCR PO SCH ×2 (08:00→22:49)
[2021-03-28] MEDS: OMEGA-3 (PURIFIED FISH OIL) 1 GM CAP PO SCH (08:02)
[2021-03-28] MEDS: CHOLECALCIFEROL 1,000 UNITS 25 MCG TAB PO SCH (08:03)
[2021-03-28] MEDS: MAGNESIUM OXIDE 400 MG TAB PO SCH (08:03)
[2021-03-28] MEDS: dexAMETHasone 6 MG in SYRINGE 0 ML IV SCH (08:04)
[2021-03-28] MEDS: ZINC SULFATE 220 MG CAPSULE PO SCH (08:22)
[2021-03-28] MEDS ORDERED: NON-FORMULARY MEDICATION (Cholecalciferol (Vitamin D3) [Vitamin D3] 25 mcg (1,000 unit) Ta PO SCH (09:00)
--- NOTE | 2021-03-28 09:02 | CT Scan Report ---
CHEST CTA for PULMONARY ARTERIES CT DOSE: 951.71 mGy.cm HISTORY: Positive Covid. Cough. Shortness of breath. TECHNIQUE: Multiaxial CT images of the chest were performed following the intravenous administration of contrast to evaluate the pulmonary arteries. Maximal intensity projection images were also obtaine d. A dose lowering technique was utilized adhering to the principles of ALARA. COMPARISON STUDY: None. FINDINGS: The visualized liver and spleen are unremarkable. Mild nodular thickening of the adrenal gl ands remains unchanged. There is a moderate hiatus hernia, unchanged. No pleural or pericardial effus ions. The heart is top normal in size. Hypoplastic thyroid gland. Subcentimeter mediastinal and hilar lymph nodes do not meet CT criteria for pathologic involvement. Moderate calcified plaque within the coronary arteries. No evidence for an aortic dissection. Suboptimal opacification of the distal pulm onary arteries due to the timing of contrast. However, no definite filling defects within the pulmona ry arteries to suggest a pulmonary embolus. A few scattered peripheral groundglass opacities within t he lungs, right greater than left. This likely represents a mild viral pneumonia. IMPRESSION: 1. No evidence for pulmonary embolus. 2. A few scattered peripheral groundglass airspace opacities within the lungs most pronounced on the right. This favors a mild viral pneumonia. 3. Moderate hiatus hernia. ACT 112: Negative or not required by law. Electronically signed by: Warren Thacker M.D. 03/28/2021 9:01 AM
--- NOTE | 2021-03-28 09:06 | XRay Report ---
XR chest 1V portable HISTORY: cough COMPARISON: Chest 11/22/2020. FINDINGS: No pneumothorax. No pleural effusions. The heart is normal in size. There is a moderate hia tus hernia. Scattered peripheral airspace opacities within the mid to lower lung zones most pronounce d on the right are new from the prior study. This likely represents a viral pneumonia. There is mild emphysema. IMPRESSION: Mild multifocal pneumonia. ACT 112: Negative or not required by law. Electronically signed by: Warren Thacker M.D. 03/28/2021 9:04 AM
[2021-03-28] MEDS ORDERED: ENOXAPARIN 0.5 MG/KG SQ SCH (09:30)
[2021-03-28] MEDS: ENOXAPARIN INJ 60 MG/0.6 ML SYR SQ SCH ×2 (10:21→22:49)
[2021-03-28] MEDS: FAMOTIDINE 20 MG TAB PO SCH ×2 (10:22→22:49)
--- NOTE | 2021-03-28 15:59 | Hospitalist Progress Note ---
Date of Service March 28, 2021 Assessment & Plan (1) Pneumonia due to COVID-19 virus: Plan: 65-year-old white female with an underlying past medical history of COPD, SLE, HTN and hypothyroidism Initially hemodynamically stable and not hypoxic upon presentation into the ED. Received monoclonal antibody with anticipation for discharge from the emergency department While monoclonal antibody infusing, dropped her sats briefly to 83% Started on supplemental oxygen and subsequently hospitalized Initially given remdesivir, Decadron and empiric antibiotic therapy CTA showed no evidence of PE but did show groundglass opacities in the periphery consistent with viral pneumonia When seen by myself this morning, she has been taken off of oxygen and her pulse ox is in the mid 90s. She denies any shortness of breath At this point, will DC any additional doses of remdesivir as qualifications for this medication are that she would be requiring supplemental oxygen Add incentive spirometry Continue Decadron Monitor. If stable over the next 24 hours, consider discharge to home She did receive today's dose of remdesivir. If she ends up desaturating requiring supplemental oxygen, will resume this with tomorrow's dose. (2) Hypoxia: Plan: See above (3) Lyme disease: Plan: Diagnosed 12 weeks ago Completed a full course of doxycycline Her IgM and IgG are positive (suspect she has not truly converted IgM to IgG) No need for additional doxycycline at this time (4) Hypokalemia: Plan: Potassium 3.4 upon edition. Supplemented. Follow-up labs tomorrow (5) Lupus: Plan: Noted on problems, however, no long-term therapy (6) HTN (hypertension): Plan: BP 110 to 130s Amlodipine held as she did have a blood pressure of 104 systolic Can continue to hold for now (7) Hypothyroidism: Plan: Continue levothyroxine 50 mcg daily (8) COPD (chronic obstructive pulmonary disease): Plan: No evidence of acute exacerbation Patient denies shortness of breath, and is not bronchospastic or wheezing Continue Advair as prior to hospitalization (or pharmacy formulary substitution) Utilize nebulized treatments as needed Admission and Anticipated Discharge Date Admission Date: March 28, 2021 Subjective Patient seen on daily rounds today. Hospitalized early this morning with Covid and hypoxemia. Approximately 10 to 12 weeks ago, was feeling unwell. Had complaints of dizziness/lightheadedness, fevers, chills, and felt like "she was in a fog". Was seen by her PCP and tested positive for Lyme disease at that time. Was treated with and completed a full course of doxycycline and her symptoms improved. Yesterday while cleaning the chicken coop, she had a return of similar symptoms prompting her to come back to the emergency department. Her Covid IgM and IgG are both positive (I suspect she has yet to convert); however, this time her Covid test is also positive. She was hemodynamically stable and not hypoxic. She was treated with monoclonal antibody with plan for discharge to home. While getting monoclonal antibody infusion, her sats dropped to 83% prompting hospitalization. She was taken off of supplemental oxygen early this morning and her sats have been maintained in the low to mid 90s. She denies any shortness of breath. CTA was performed showing no evidence of PE with peripheral groundglass opacities consistent with viral pneumonia. Otherwise she feels well. Review of Systems Review of Systems: All systems reviewed and are unremarkable except as noted in HPI and below Denies fevers, chills, headache, nasal congestion, sore throat, cough, chest pain, shortness of breath, palpitations, orthopnea, PND, abdominal pain, nausea, vomiting, diarrhea, constipation, dysuria, hematuria, frequency, back pain, joint pain or swelling, easy bruising or bleeding, skin lesions or rashes. Physical Exam Physical Exam: General: Resting comfortably in her hospital bed. She does not appear ill or toxic. NAD. HEENT: Head is AT/NC buccal mucosa is moist and pink Neck: No JVD. Negative hepatojugular reflex Cardiac: RRR without M/G/R Lungs: Speaking full sentences on ambient air. No accessory muscle use or labored breathing. Clear to auscultation without W/R/R Abdomen: Normoactive X4. Soft and nontender in all quadrants. Extremities: No peripheral clubbing cyanosis or edema Neuro: A&O X4 cranial nerves II through XII are grossly intact no focal neuro deficits Skin: No obvious skin lesions or rashes Psych: Appropriate affect pleasant and cooperative Results & Data Results & Data ([facility]) Vital Signs (Past 12 Hours) Vital Signs Temp Pulse Pulse Pulse Resp BP Pulse Ox 03/28/21 13:36 97 H 97 H 18 127/81 94 03/28/21 11:59 99 H 18 127/81 93 03/28/21 11:07 86 20 92 03/28/21 10:17 03/28/21 07:41 37.1 C 93 H 24 114/72 93 03/28/21 07:07 77 18 91 03/28/21 05:57 84 21 116/94 95 03/28/21 05:00 77 24 97 03/28/21 04:30 86 23 98 03/28/21 04:01 86 18 96 03/28/21 04:00 83 29 H 83 L 03/28/21 03:59 20 83 L Pulse Ox 03/28/21 13:36 03/28/21 11:59 03/28/21 11:07 03/28/21 10:17 91 03/28/21 07:41 03/28/21 07:07 03/28/21 05:57 03/28/21 05:00 03/28/21 04:30 03/28/21 04:01 03/28/21 04:00 03/28/21 03:59 PG Care Time/CCT Total # of Minutes Spent Total Time Spent with Patient: Total time spent is greater than 50% in coordination of care (as documented) at patient's floor/unit and/or counseling patient: Coding Level of Care Code None Diagnoses Pneumonia due to COVID-19 virus U07.1; J12.82 Hypoxia R09.02 Lyme disease A69.20 Hypokalemia E87.6 Lupus L93.0 HTN (hypertension) I10 Hypothyroidism E03.9 COPD (chronic obstructive pulmonary disease) J44.9
--- NOTE | 2021-03-28 21:38 | Electrocardiogram Report ---
Test Reason : Blood Pressure : / mmHG Vent. Rate : 097 BPM Atrial Rate : 097 BPM P-R Int : 132 ms QRS Dur : 076 ms QT Int : 330 ms P-R-T Axes : 026 000 048 degrees QTc Int : 419 ms Normal sinus rhythm Moderate voltage criteria for LVH, may be normal variant Borderline ECG When compared with ECG of 22-NOV-2020 17:21, No significant change was found Confirmed by Elie Ladd ([id number]) on 03/28/2021 9:38:16 PM Referred By: REFERRED SELF Confirmed By:Elie Ladd
[2021-03-29 04:59] LABS: Basophils # (auto) 0.01 K/uL (0-0.2); Basophils % (auto) 0.2 %; Hematocrit (blood only) 40.1 % (37-47); Hemoglobin 13.3 g/dL (12.0-16.0); Immature Granulocytes # (auto) 0.02 K/uL (0.00-0.02); Immature Granulocytes % (auto) 0.4 %; Lymphocytes # (auto) 0.79 K/uL (1.2-3.4); Lymphocytes % (auto) 15.3 %; Mean Corpuscular Hemoglobin 31.5 pg (25-34); Mean Corpuscular Hgb Conc 33.2 g/dL (32-36); Mean Platelet Volume 10.1 fL (7.4-10.4); Monocytes # (auto) 0.61 K/uL (0.11-0.59); Monocytes % (auto) 11.8 %; Neutrophils # (auto) 3.75 K/uL (1.4-6.5); Neutrophils % (auto) 72.3 %; Platelet Count 122 K/uL (130-400); RDW Coefficient of Variation 13.5 % (11.5-14.5); RDW Standard Deviation 46.9 fL (36.4-46.3); Red Blood Count 4.22 M/uL (4.2-5.4); White Blood Count 5.18 K/uL (4.8-10.8)
[2021-03-29 05:55] LABS: Albumin Globulin Ratio 0.7 (0.9-2); Albumin Level 3.2 gm/dl (3.4-5.0); BUN Creatinine Ratio 21.7 (10-20); Bilirubin,Total 0.5 mg/dl (0.2-1); Calcium 9.4 mg/dl (8.5-10.1); Est GFR (African American) 58.2 ml/min; Est GFR (Non-African American) 50.3 ml/min; Globulin 4.6 gm/dl (2.5-4.0); Magnesium 2.6 mg/dl (1.8-2.4); Potassium 4.5 mmol/L (3.5-5.1); Total Protein 7.8 gm/dl (6.4-8.2)
[2021-03-29] MEDS: LEVOTHYROXINE SODIUM 150 MCG TABLET PO SCH (06:08)
[2021-03-29] MEDS: ALBUT/IPRATROP 3MG/0.5MG NEB 3 ML VIAL NEB SCH (07:35)
[2021-03-29] MEDS: guaiFENesin 600 MG TABCR PO SCH (08:04)
[2021-03-29] MEDS: MAGNESIUM OXIDE 400 MG TAB PO SCH (08:04)
[2021-03-29] MEDS: OMEGA-3 (PURIFIED FISH OIL) 1 GM CAP PO SCH (08:04)
[2021-03-29] MEDS: CHOLECALCIFEROL 1,000 UNITS 25 MCG TAB PO SCH (08:05)
[2021-03-29] MEDS: ZINC SULFATE 220 MG CAPSULE PO SCH (08:05)
[2021-03-29] MEDS: ENOXAPARIN INJ 60 MG/0.6 ML SYR SQ SCH (08:05)
[2021-03-29] MEDS: FAMOTIDINE 20 MG TAB PO SCH (08:05)
[2021-03-29 08:16] LABS: 18KDIGG Band REACTIVE; 23KDIGG Band REACTIVE; 23KDIGM Band REACTIVE; 28KDIGG Band NON-REACTIVE; 30KDIGG Band NON-REACTIVE; 39KDIGG Band REACTIVE; 39KDIGM Band NON-REACTIVE; 41KDIGG Band REACTIVE; 41KDIGM Band REACTIVE; 45KDIGG Band NON-REACTIVE; 58KDIGG Band REACTIVE; 66KDIGG Band NON-REACTIVE; 93KDIGG Band NON-REACTIVE; Lyme Antibodies, WB IgG POSITIVE (NEGATIVE); Lyme Antibodies, WB IgM POSITIVE (NEGATIVE)
[2021-03-29] MEDS ORDERED: FLUTICASONE/VILANTEROL 100/25MCG 14 PUFFS/INHALER INH SCH (09:00)
[2021-03-29] MEDS ORDERED: ALBUT/IPRATROP 3MG/0.5MG NEB 3 ML VIAL NEB PRN (09:06)
[2021-03-29] MEDS ORDERED: REMDESIVIR 100 MG in SODIUM CHLORIDE 0.9% 230 ML IV SCH (12:00)
[2021-03-29] MEDS: dexAMETHasone 6 MG in SYRINGE 0 ML IV SCH (12:02)
--- NOTE | 2021-03-29 18:19 | Discharge Summary ---
Date of Service March 29, 2021 Admission Exam Per Admitting Provider History of Present Illness Chief Complaint: The patient presents to the emergency department with complaint of fatigue, chills, confusion, decreased appetite, lightheadedness about 12 weeks ago that was relieved by a 21-day course of doxycycline for Lyme disease. She noticed 1 week ago an episode of dizziness causing her to fall, and then had a return of some of the previous symptoms, but also became short of breath and had dyspnea on exertion. Primary Care Provider: NO PCP Principal Diagnosis 1. Covid pneumonia with hypoxemia 2. Hypoxemiaresolved 3. Hypokalemiareplaced and resolved Discharge Exam General: Resting comfortably in her hospital bed. She does not appear ill or toxic. NAD. HEENT: Head is AT/NC buccal mucosa is moist and pink Neck: No JVD. Negative hepatojugular reflex Cardiac: RRR without M/G/R Lungs: Speaking full sentences on ambient air. No accessory muscle use or labored breathing. Clear to auscultation without W/R/R Abdomen: Normoactive X4. Soft and nontender in all quadrants. Extremities: No peripheral clubbing cyanosis or edema Neuro: A&O X4 cranial nerves II through XII are grossly intact no focal neuro deficits Skin: No obvious skin lesions or rashes Psych: Appropriate affect pleasant and cooperative Discharge Data Allergies Allergy/AdvReac Type Severity Reaction Status Date / Time amoxicillin Allergy Intermediate rash Verified 03/27/21 22:33 albuterol [From Combivent] AdvReac Intermediate Headache Verified 03/27/21 22:33 ipratropium [From Combivent] AdvReac Intermediate Headache Verified 03/27/21 22:33 hydrochlorothiazide AdvReac Mild SICK IN Verified 03/27/21 22:33 STOMACH Consultations 03/28/21 04:17 ED Decision to Admit Stat Ordered Studies 03/27/21 21:49 CT head/brain wo con Urgent Impression: No acute intracranial abnormality. 03/28/21 04:50 CT angio chest PE protocol Urgent IMPRESSION: 1. No evidence for pulmonary embolus. 2. A few scattered peripheral groundglass airspace opacities within the lungs most pronounced on the right. This favors a mild viral pneumonia. 3. Moderate hiatus hernia. Hospital Course (1) Pneumonia due to COVID-19 virus: 65-year-old white female with an underlying past medical history of COPD, SLE, HTN and hypothyroidism Initially hemodynamically stable and not hypoxic upon presentation into the ED. Received monoclonal antibody with anticipation for discharge from the emergency department While monoclonal antibody infusing, dropped her sats briefly to 83% Started on supplemental oxygen and subsequently hospitalized Initially given remdesivir, Decadron and empiric antibiotic therapy CTA showed no evidence of PE but did show groundglass opacities in the periphery consistent with viral pneumonia When seen by myself on 03/28, she has been taken off of oxygen and her pulse ox is in the mid 90s. She denied any shortness of breath remdesivir discontinued as qualifications for this medication are that she would be requiring supplemental oxygen Added incentive spirometry Continued Decadron She has been stable in terms of oxygenation for over 24 hours. Pulse ox has been between 93 and 96% on room air Recommended a two-step pulse oximetry but she refused. Reports that she will "push through". Has been ambulating to and from the bathroom and has not desaturated lower than 93% At this point time, I feel that she is medically and hemodynamically stable for discharge to home. We will continue Decadron for total of 10 days Can continue zinc/vitamin C ([id number]) for immune support Prescribed a ProAir inhaler to use as needed. Patient is firmly with this as she has an underlying history of COPD Tessalon Perles provided for symptomatic relief of cough if needed Patient encouraged to come back to the ED for any new or worsening symptoms. Patient does have a pulse oximeter at home and understands to watch for oxygen levels less than 88% She should follow-up with her PCP within 7 to 10 days Discussed in great detail recommendations for continued quarantine for up to 10 days from symptom onset (2) Hypoxia: See above (3) Lyme disease: Diagnosed 12 weeks ago Completed a full course of doxycycline Her IgM and IgG are positive (suspect she has not truly converted IgM to IgG) No need for additional doxycycline at this time (4) Hypokalemia: Potassium 3.4 upon edition. Supplemented--> replaced and resolved (5) Lupus: Noted on problems, however, no long-term therapy (6) HTN (hypertension): Resume prehospital medications as outlined (7) Hypothyroidism: Continue levothyroxine 50 mcg daily (8) COPD (chronic obstructive pulmonary disease): No evidence of acute exacerbation Patient denies shortness of breath, and is not bronchospastic or wheezing Continue Advair as prior to hospitalization (or pharmacy formulary substitution) Utilized nebulized treatments as needed Total Time Total Time Spent Total Time Spent (In Minutes): 45 minutes including time spent with patient, discussion with attending provider, and coordination of care with case management Discharge Plan Discharge Items Patient Disposition: Home - Self-Care Reason For Visit: COVID-19 PNEUMONIA WITH HYPOXIA, LYME DISEASE Discharge Diagnosis: 1. Covid PNA- s/p Monoclonal Antibody. Not Requiring O2 Condition on Discharge: Good Activity: As commented below Activity Comment: as tolerated. Non-emergency contact: Primary Care Provider Call non-emergency contact if: you have any medication questions and your symptoms worsen Follow-up/Referrals: Micheline Oviedo PA-C [Primary Care Provider] - 04/09/21 3:00 pm (Follow up with primary care) Diet: Heart Healthy Addtl Attending Provider Instructions: - you presented to the hospital with flu-like symptoms - Although you recently tested positive and were treated for Lyme Disease, I believe this issue this time around is Covid (as you tested positive for) - you received Monoclonal Antibody treatment if the Emergency Room - during this infusion, Your Oxygen levels dropped which is when you were hospitalized - you Seemed to recover rather quickly and within hours, were no longer requiring supplemental O2 - you have been OFF of Oxygen now for >24 hours and your oxygen levels are where they need to be (>/=88%)-- have actually been 93-96% - you have been started (and will be continued on) Decadron. This is a steroid to help serve as an antiinflammatory. We have found that as your recover from this virus, your immune system can "go into overdrive" and wreck havoc on the body - The steroid is to help prevent this - Use the proair inhaler prescribed (2 puffs inhalation every 6 hours as needed) for cough, shortness of breath, wheezing - Tessalon perles provided to help with a cough if needed - I advise taking Zinc and Vitamin C to help boost your immune system - Use the Incentive Spirometer that was given in the hospital (every 2hours while awake) to help exercise your lungs - Be sure to remain active but it is also important to NOT Overdo it (as you will be easily fatigued and this may be ongoing for weeks to months) - COME BACK TO THE ED for any new or worsening symptoms - you need for follow up with a Family Doctor (The nurse navigator is going to help you with this) within 7-10 days you are to remain in self isolation for he net 9 days Pending Studies at Discharge: No Stand-Alone Forms: My [facility] Medications and DC Order Prescriptions: New dexamethasone [Decadron] 6 mg tablet 6 mg PO DAILY Qty: 7 RF: 0 benzonatate 100 mg capsule 100 mg PO TID PRN (Reason: cough) Qty: 30 RF: 0 Continued ibuprofen 600 mg tablet 600 mg PO Q6H PRN (Reason: pain) Qty: 90 RF: 5 amlodipine 10 mg tablet 10 mg PO QAM Qty: 90 RF: 3 nystatin-triamcinolone 100,000-0.1 unit/g-% cream 1 applic TOP TID PRN (Reason: Skin Irritation) Qty: 60 RF: 5 levothyroxine 150 mcg tablet 150 mcg PO QAM Qty: 90 RF: 3 vitamin K2 40 mcg Tablet 40 mcg PO QAM RF: 0 acetaminophen [Tylenol Extra Strength] 500 mg Tablet 1,000 mg PO Q6 PRN (Reason: FEVER/PAIN) RF: 0 potassium 99 mg Tablet 0 mg PO DAILY RF: 0 vitamin E 400 unit Tablet 0 mg PO DAILY RF: 0 Vitamin C 100 mg Tablet 0 mg PO DAILY RF: 0 magnesium 250 mg Tablet 0 mg PO DAILY RF: 0 omega-3 fatty acids Capsule 0 mg PO DAILY RF: 0 cholecalciferol (vitamin D3) [Vitamin D3] 25 mcg (1,000 unit) Tablet 25 mcg PO DAILY RF: 0 fluticasone propion-salmeterol [Advair Diskus] 100-50 mcg/dose blister with device 1 inh INH BID PRN (Reason: Shortness Of Breath) RF: 0 albuterol sulfate [Ventolin HFA] 90 mcg/actuation HFA aerosol inhaler 2 puff INHALATION QID PRN (Reason: Shortness Of Breath) Qty: 18 RF: 0 Discharge Orders: Discharge Order (Routine); Ordered 03/29/21 Ordered By: Renata Bruno/Other Patient Handouts: 2019-nCoV Admission Data Admit Date/Time: 03/28/21 05:32 Attending Provider: Charan Rueda Admit Provider: Olivier Pierce Primary Care Provider: Micheline Oviedo Other Providers: Olivier Pierce Other Interventions: Discharge Summary Assessment (RN) Last Done: 03/29/21 12:35 Supervising Physician Co-Signing Physician Notes Patient seen and examined on the day of discharge. I agree with the discharge summary by Renata LEYVA. I have reviewed the chart including labs, imaging and plans for discharge. patient feeling great, breathing comfortably on room air, no fever, eating well - COVID 19 pneumonia: stable on room air for 24 hours, will discharge on dexamethasone, instructed to monitor her breathing should get finger pulse oximeter to make sure her saturations are not dropping below 89% stay well nourished, well rested Coding Level of Care Code D/C DAY MANAGEMENT >30 MINS Diagnoses Pneumonia due to COVID-19 virus U07.1; J12.82 Hypoxia R09.02 Lyme disease A69.20 Hypokalemia E87.6 Lupus L93.0 HTN (hypertension) I10 Hypothyroidism E03.9 COPD (chronic obstructive pulmonary disease) J44.9
== END 2021-03-29 13:51 | disposition home or self-care (01) | DRG 177 ==
LOC: ED 17:05 → SUATTDRO 03-28 05:32 → EDINP 03-28 05:32
DX: E87.6 Hypokalemia; M32.9 Systemic lupus erythematosus, unspecified; U07.1 COVID-19; I10 Essential (primary) hypertension; R09.02 Hypoxemia; J12.82 Pneumonia due to coronavirus disease 2019; A69.20 Lyme disease, unspecified; E03.9 Hypothyroidism, unspecified; J44.1 Chronic obstructive pulmonary disease with (acute) exacerbation